=== PATIENT | female | born 1970 | race Caucasian/White ===

== ENCOUNTER → 2016-12-18 | Day surgery (SDC) | payer BC ==
[~2016-12-18] MED LIST: CETIRIZINE HCL10 MG PO; FLUOXETINE HCL20 M1 PO; MINASTRIN 24 F1 EACH PO; ROSUVASTATIN CA10 MG PO
--- NOTE | ~2016-12-18 | OR ---
Unit #: [id number] #: [id number] Patient: JOHNATHAN CHENEY [id number] [address] [id number] MR#: [id number] NAME: JOHNATHAN CHENEY. ROOM: Date of Procedure: 12/18/2016 Admission Date: 12/18/2016 Surgeon: Samuel Kiser M.D. : 1970 Attending Physician: Samuel Kiser M.D. Referring Physician: Samuel Kiser M.D. Primary Care Physician: Catrachita Fitch OPERATIVE REPORT PREOPERATIVE DIAGNOSES 1. Nasal obstruction. 2. Septal deviation. 3. Turbinate hypertrophy bilaterally. POSTOPERATIVE DIAGNOSES 1. Nasal obstruction. 2. Septal deviation. 3. Turbinate hypertrophy bilaterally. PROCEDURE PERFORMED Septoplasty as well as bilateral submucous resections of the inferior turbinates. ANESTHESIA By general endotracheal anesthesia. COMPLICATIONS There were none. FINDINGS Included septal deviation to the right as well as turbinate hypertrophy left greater than right. HISTORY This is a 46-year-old female, who has had a lifelong history of nasal obstruction, right greater than left. She presents today for septoplasty and turbinate reductions. DESCRIPTION OF PROCEDURE The patient was placed supine on the operating room table. Anesthesia achieved by general endotracheal anesthesia. The patient was prepped and draped for septoplasty. 1% lidocaine with epinephrine was injected to the columella bilaterally. Hemitransfixion incision was made with 15 blade on the right, then a submucoperichondrial flap was developed first on the right and then on the left. After transecting a portion of septal cartilage anteriorly leaving a good anterior strut of cartilage present. The deviated portions of cartilage and bone were then isolated at the midline and then removed with Buddy forceps. A small amount of flattened cartilage was then placed at the midline between the septal flaps and then septal flaps were approximated with 4-0 plain gut mattress stitch. A 4-0 chromic interrupted stitch was then used to close the Unit #: [id number] #: [id number] Patient: JOHNATHAN CHENEY hemitransfixion incision. A [employer] Alley inferior reduction blade was then used to perform a submucous resection of both the left and the right inferior turbinate and a Boies elevator was used to outfracture the turbinates bilaterally. Noriega septal splints were placed bilaterally and secured with 2-0 silk stitch. The patient was awakened and transferred to recovery in stable condition. Dictated by... Hubert Phelps TD: 12/18/2016 22:15 JOB #: [id number] OPERATIVE REPORT X Samuel Kiser MD PROCEDURE OPERATIVE NOTE
== END | disposition home or self-care (01) ==
LOC: CSUR 08:16
DX: J34.89 Other specified disorders of nose and nasal sinuses (principal); J34.2 Deviated nasal septum; J34.3 Hypertrophy of nasal turbinates; J32.9 Chronic sinusitis, unspecified; G47.8 Other sleep disorders; R01.1 Cardiac murmur, unspecified; M19.90 Unspecified osteoarthritis, unspecified site; Z79.899 Other long term (current) drug therapy; Z82.49 Family history of ischemic heart disease and other diseases of the circulatory system
CPT/HCPCS: J0330; J1100; J2250; J2405; J2550; J2710; J3010